=== PATIENT | male | born 1975 | race Caucasian/White ===

== ENCOUNTER 2022-03-03 19:10 | Emergency (ER) | payer BC, SELFPAY ==
[2022-03-03 19:57] VITALS: BP 125/85; PULSE 82; RESP 18; TEMP 36.8; O2SAT 100; BMI 28.7
[2022-03-03] MEDS: ONDANSETRON 2 MG/ML inj 4 MG IVP (20:00)
[2022-03-03] MEDS: ACETAMINOPHEN 500 MG TABLET 1000 MG PO (20:00)
[2022-03-03] MEDS: 0.9 % SODIUM CHLORIDE 1000 ml 1,000 ML IV ×2 (20:00→20:54)
[2022-03-03] MEDS: KETOROLAC 30 MG/ML inj IVP (20:02)
[2022-03-03] MEDS: diphenhydrAMINE 50 MG/ML inj 25 MG IVP (20:04)
[2022-03-03 20:35] LABS: Basophils Absolute Auto 0.05 K/uL (0.00-0.30); Basophils Percent Auto 0.8 % (0.0-3.0); Eosinophils Absolute Auto 0.03 K/uL (0.00-0.50); Eosinophils Percent Auto 0.5 % (0.0-7.0); Hematocrit 47.5 % (37.0-53.0); Hemoglobin* 16.2 gm/dL (13.5-17.5); Immature Granulocytes Abs Auto 0.02 K/uL (0.00-0.30); Lymphocytes Absolute Auto 1.36 K/uL (0.90-2.90); Lymphocytes Percent Auto 20.5 % (20-44); Mean Corpuscular HGB Conc 34 gm/dL (32-36); Mean Corpuscular Hemoglobin 30 pg (26-34); Mean Corpuscular Volume 87 fL (80-100); Monocytes Percent Auto 8.9 % (0.0-11.0); Platelet Count* 130 K/uL (140-440); RDW Coefficient of Variation % 11.9 % (11.5-15.5); Red Blood Count 5.49 m/uL (4.30-5.90); White Blood Count* 6.65 K/uL (4.50-11.00)
[2022-03-03 20:36] LABS: Slide Review Reflex No
[2022-03-03 20:43] LABS: Chloride* 102 mmol/L (96-114)
[2022-03-03 20:44] LABS: Potassium* 3.5 mmol/L (3.6-5.1); Sodium* 138 mmol/L (135-149)
[2022-03-03 20:46] LABS: Creatinine* 1.4 mg/dL (0.5-1.5); Est. Creatinine Clearance* 67.35; Estimated Glomerular Filt Rate 62 ml/min
[2022-03-03 20:47] LABS: Blood Urea Nitrogen* 23 mg/dL (5-24); Calcium* 8.5 mg/dL (8.4-10.6); Carbon Dioxide* 30 mmol/L (20-32); Glucose* 106 mg/dL (60-115)
[2022-03-03 20:50] LABS: C Reactive Protein* 4.3 mg/dL (0.5-1.0)
[2022-03-03 21:01] LABS: PCR FLU A Negative PCR FLU A (Negative); PCR FLU B Negative PCR FLU B (Negative); PCR RSV Negative PCR RSV (Negative)
[2022-03-03 21:29] LABS: SARS PCR* POSITIVE SARS-CoV-2 (Negative)
[2022-03-03 21:47] VITALS: TEMP 36.4
[2022-03-03 21:48] VITALS: TEMP 36.4
--- NOTE | 2022-03-03 21:59 | ED_ITS ---
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 He is anuradha from [place] and has been sick for the last 2 days. He has noted vomiting, nausea, and a generalized headache. He has also felt very chilled and feverish but has not taken his temperature. He has a slight cough associated with this. But no sore throat. He has been taking ibuprofen 800 mg twice today. He has been unable to really keep any fluids down. Feels slightly dehydrated but urinating, and no diarrhea. Denies any abdominal pain also and noted it he has a rash on his lower extremities. It is very itchy. He is not COVID vaccinated. Recently started ozempic for prediabetes, took a quarter dose on the weekend. MD elicited complaint: headache and migraine Related Data Home Medications Medication Instructions Recorded Confirmed pantoprazole 40 mg tablet,delayed 40 mg PO DAILY 03/03/22 03/03/22 release semaglutide 0.25 mg or 0.5 mg (2 0.25 mg SUBCUT QWEEK 03/03/22 03/03/22 mg/1.5 mL) subcutaneous pen injector (Ozempic) Allergies Allergy/AdvReac Type Severity Reaction Status Date / Time No Known Drug Allergies Allergy Verified 03/03/22 19:59 Review of Systems Status of ROS: Reports: 10 or more systems reviewed and unremarkable except as noted in History and below [facility] Medical History No significant past medical history Surgical History No significant past surgical history Social History Smoking Status: Current every day smoker What tobacco products do you use: cigarettes Do you use any of these nicotine containing products: None How often do you have a drink containing alcohol: never How often do you have six or more drinks on one occasion: Never AUDIT-C Alcohol total score: 0 Non-prescribed substance use: denies use Exam Const: Vital Signs, click to edit/add: Vital Signs - 24 hr 03/03/22 19:57 03/03/22 21:47 03/03/22 21:48 Temperature 98.2 F 97.6 F 97.6 F Pulse Rate [Right Pulse Oximeter] 82 Respiratory Rate 18 Blood Pressure [Ri ght Upper Arm] 125/85 Pulse Oximetry 100 Documenting provider has reviewed patient's vital signs: yes Common normals: no apparent distress, average body habitus, oriented x3, no limitation s, healthy appearing, alert and well nourished Orientation/consciousness: Yes awake, Yes oriented to person, Yes oriented to place and Yes oriented to time HENMT: Common normals: normocephalic, head/scalp atraumatic, hearing grossly normal bilaterally, external ears normal, EAC's normal, TM's normal bilaterally, external nose normal, nasal mucous membranes and turbinates normal, moist oral mucous membranes, oropharynx normal, dentition normal and gingiva normal Head and scalp: normal to inspection, normocephalic and atraumatic Nose: external nose normal and nasal mucous membranes and turbinates normal External ear: external ears normal External auditory canal: EAC's normal Tympanic membrane: TM's normal bilaterally Eye: Common normals: PERRL, EOMs intact bilaterally, conjunctivae normal, no scleral icterus, no papilledema, normal visual reza by confrontation and fundi normal bilaterally General eye: normal appearance of both eyes Conjunctiva: conjunctiva(e) normal Pupil: PERRL Direct Ophthalmoscopy: no papilledema and fundi normal bilaterally Neck & C-Spine: Common normals: full ROM, no lymphadenopathy, no meningeal signs, no JVD and no carotid bruits General: normal visual inspection and trachea midline Lymph: Lymphatic: no lymphadenopathy noted and no lymphedema noted Chest: Common normals: inspection of chest normal Resp: Common normals: normal respiratory effort, no retractions, no use of accessory muscles, clear to auscultation bilaterally and percussion normal Effort & inspection: able to speak in complete sentences and symmetric chest movement Auscultation: clear to auscultation bilaterally Percussion: percussion normal Cardio: Common normals: no JVD, regular rate, regular rhythm, S1 normal heart sound, S2 normal heart sound and peripheral pulses 2+ throughout Palpation: normal PMI Rate: regular rate Rhythm: regular rhythm Heart sounds: S1 normal and S2 normal Peripheral pulses: pulses 2+ throughout GI: Common normals: Normal to inspection, nondistended, normoactive bowel sounds present, soft to palpation, non-tender, no hepatosplenomegaly and no bruits Auscultation: normoactive bowel sounds Palpation: soft and no hepatosplenomegaly Rectal Exam - Male: deferred : Common normals: no CVA tenderness and external exam normal Bladder/kidney exam: no CVA tenderness Back & Pelvis: Common normals: no CVA tenderness, thoracic and lumbar spine normal to inspection, no thoracic nor lumbar tenderness, thoraco-lumbar ROM normal and straight leg raise negative bilaterally Extremity: Common normals: normal to inspection, full ROM, normal capillary refill, no joint enlargement, no clubbing, cyanosis or edema, no calf tenderness and no pedal edema Neuro: Common normals: oriented x3, CN's II-XII intact bilaterally, moves all extremities, no focal motor deficits, no sensory deficits noted, deep tendon reflexes 2+ bilaterally and gait normal Sensorium/orientation: awake, alert, oriented to person, oriented to place and oriented to time Meningeal signs: no meningeal signs Motor exam: strength 5/5 throughout Skin: Narrative: He has notable rash that appears to be a blanching urticarial type rash on his thighs bilaterally. With some mild excoriations. Course Course Hospital Course: Life-threatening differential diagnosis include subarachnoid hemorrhage, meni ngitis, encephalitis, carbon monoxide poisoning, and intracerebral hemorrhage. Other differential diagnosis include but not limited to migraine, cluster headache, tension headache, S[employer] BUSINESS PROCESS ANALYST vasculitis, mass lesion, temporal arteritis, click acute closed angle glaucoma, septal and trigeminal neuralgia, sinusitis, closed head injury, and stroke Life-threatening differential diagnosis is include meningitis, encephalitis, pneumonia, intra-abdominal infection, bacteremia, other differential diagnosis include but are not limited to viral upper respiratory tract infection, strep, urinary tract infection, skin infection, osteomyelitis, influenza, fungal infections, diskitis, epidural abscess, or fever of unknown origin. Patient has signs and symptoms consistent with COVID infection, and this was pos itive on his COVID swab. He improved with IV fluids here, Toradol, and the treatment we gave him. I think it would be reasonable now is his vital signs are normal with normal oxygen saturation to discharge him home. With Nadir for this, and give him guidelines for worsening condition and communicability. Vital Signs Vital signs: Initial Vital Signs Temperature 98.2 F 03/03/22 19:57 Temperature Source Temporal Artery Scan 03/03/22 19:57 Pulse Rate 82 03/03/22 19:57 Respiratory Rate 18 03/03/22 19:57 Blood Pressure 125/85 03/03/22 19:57 Blood Pressure Mean 98 03/03/22 19:57 Blood Pressure Position Sitting 03/03/22 19:57 Pulse Oximetry 100 03/03/22 19:57 Oxygen Delivery Method 03/03/22 19:57 Vital Signs Temperature 98.2 F 03/03/22 19:57 Pulse Rate 82 03/03/22 19:57 Respiratory Rate 18 03/03/22 19:57 Blood Pressure 125/85 03/03/22 19:57 Pulse Oximetry 100 03/03/22 19:57 Temperature 97.6 F 03/03/22 21:48 Pulse Rate 82 03/03/22 19:57 Respiratory Rate 18 03/03/22 19:57 Blood Pressure 125/85 03/03/22 19:57 Pulse Oximetry 100 03/03/22 19:57 MDM - Headache Differential Diagnosis Differential diagnosis: Likely migraine, tension headache, subarachnoid hemorrhage, headache, meningitis, sinusitis and postconcussion syndrome Medical Records Attestation: I reviewed the patient's medical records. Lab Data Attestation: I reviewed the patient's lab results. Labs: Lab Results 03/03/22 03/03/22 03/03/22 Range/Units 20:18 20:20 20:20 WBC 6.65 (4.50-11.00) K/uL RBC 5.49 (4.30-5.90) m/uL Hgb 16.2 (13.5-17.5) gm/dL Hct 47.5 (37.0-53.0) % MCV 87 (80-100) fL MCH 30 (26-34) pg MCHC 34 (32-36) gm/dL RDW Coeff of Jacqueline 11.9 (11.5-15.5) % Plt Count 130 L (140-440) K/uL Neut % (Auto) 69.0 (42.0-72.0) % Lymph % (Auto) 20.5 (20-44) % Long % (Auto) 8.9 (0.0-11.0) % Eos % (Auto) 0.5 (0.0-7.0) % Baso % (Auto) 0.8 (0.0-3.0) % Neut # (Auto) 4.60 (1.7-7.0) K/uL Lymph # (Auto) 1.36 (0.90-2.90) K/uL Long # (Auto) 0.60 (0.00-0.90) K/UL Eos # (Auto) 0.03 (0.00-0.50) K/uL Baso # (Auto) 0.05 (0.00-0.30) K/uL Abs Immat Gran (auto) 0.02 (0.00-0.30) K/uL Sodium 138 (135-149) mmol/L Potassium 3.5 L (3.6-5.1) mmol/L Chloride 102 (96-114) mmol/L Carbon Dioxide 30 (20-32) mmol/L BUN 23 (5-24) mg/dL Creatinine 1.4 (0.5-1.5) mg/dL Estimated Creat Clear 67.35 Estimated GFR 62 ml/min Glucose 106 (60-115) mg/dL Calcium 8.5 (8.4-10.6) mg/dL C-Reactive Protein 4.3 H (0.5-1.0) mg/dL SARS-CoV-2 (PCR) POSITIVE SARS-CoV-2 A (Negative) Influenza Type A (PCR) Negative PCR FLU A (Negative) Influenza Type B (PCR) Negative PCR FLU B (Negative) RSV (PCR) Negative PCR RSV (Negative) Discharge Plan Discharge Clinical Impression: COVID-19, Headache Patient Disposition: Home, Self-Care Condition: Improved Instructions: Acute Headache (ED), COVID-19 (Coronavirus Disease 2019) (ED) Additional Instructions: Home, rest, use of Tylenol 1 g every 8 hours, ibuprofen 800 mg every 8 hours, Zofran for nausea and vomiting. And rest. Continue with fluids. Your contagious for the next 4 days. Activity Level: No Restrictions and No strenuous activity Discharge Diet: Regular Prescriptions: No Action Ozempic 0.25 mg or 0.5 mg(2 mg/1.5 mL) pen injector 0.25 mg subcut QWEEK 0RF Rx Instructions: for 4 doses pantoprazole 40 mg tablet,delayed release (DR/EC) 40 mg PO DAILY 0RF Follow Up/Referrals: Provider,Not a Local [Primary Care Provider] - Stand Alone Forms: [employer] Info Instructions
[2022-03-03 22:03] VITALS: BP 114/70; BP 115/70; PULSE 84; RESP 18; TEMP 36.4; O2SAT 100
== END 2022-03-03 22:04 | disposition home or self-care (01) ==
PROVIDERS: Emergency Provider Family Medicine
DX: U07.1 COVID-19 (principal); R51.9 Headache, unspecified
CPT/HCPCS: 36415; 80048; 85025; 86140; 87502; 87634; 87635; 96374; 96375; 99284; A9270; J1200; J1885; J2405; J7030